=== PATIENT | male | born 1950 | race Caucasian/White ===

== ENCOUNTER 2018-03-16 08:27 | Emergency (ER) | payer MEDICARE, BC ==
[2018-03-16 08:53] VITALS: BP 132/77
--- NOTE | 2018-03-16 09:26 | ED ---
Throat Pain/Nasal Congestion - HPI Summary HPI Summary: 68 yr old male with 10 days of sinus pressure, post nasal drip, cough productive of yellow sputum. He denies fever, chills. He has had prior sinus infections before. His symptoms are moderate. - History of Current Complaint Chief Complaint: UCGeneralIllness Time Seen by Provider: 03/16/18 09:18 - Allergies/Home Medications Allergies/Adverse Reactions: Allergies Allergy/AdvReac Type Severity Reaction Status Date / Time No Known Allergies Allergy Verified 03/16/18 08:48 Home Medications: Home Medications Aspirin 81 mg CHEW TAB* 81 mg PO DAILY 03/16/18 [History Confirmed 03/16/18] Atorvastatin* [Lipitor 10 MG*] 10 mg PO DAILY 03/16/18 [History Confirmed ] Cholecalciferol (Vitamin D3) [Vitamin D3] 2,000 unit PO DAILY 03/16/18 [History Confirmed 03/16/18] Fluticasone NASAL SPRAY 50MCG* [Flonase NASAL SPRAY 50MCG*] 1 spray BOTH NARES DAILY 03/16/18 [History Confirmed 03/16/18] Insulin ASPART (NF) [Novolog (NF)] 100 ml CONT SUBCU DAILY 03/16/18 [History Confirmed 03/16/18] Losartan Potassium 25 mg PO DAILY 03/16/18 [History Confirmed 03/16/18] guaiFENesin [Mucinex] 600 mg PO DAILY 03/16/18 [History Confirmed 03/16/18] PMH/Surg Hx/FS Hx/Imm Hx Endocrine/Hematology History: Reports: Hx Diabetes - TYPE 1 - Surgical History Surgery Procedure, Year, and Place: VITRECTOMY LEFT EYE. BILATERAL FOOT SURGERY. TONSILLECTOMY. LEFT KNEE SURGERY Infectious Disease History: No Infectious Disease History: Denies: Traveled Outside the [place] in Last 30 Days - Social History Alcohol Use: Weekly Substance Use Type: Reports: None Smoking Status (MU): Never Smoked Tobacco Review of Systems Constitutional: Negative Positive: Sore Throat, Nasal Discharge, Other - sinus pressure Positive: Cough All Other Systems Reviewed And Are Negative: Yes Physical Exam Triage Information Reviewed: Yes Vital Signs On Initial Exam: Initial Vitals Temp Pulse Resp BP Pulse Ox 97.4 F 65 18 132/77 99 03/16/18 08:45 03/16/18 08:45 03/16/18 08:45 03/16/18 08:45 03/16/18 08:45 Vital Signs Reviewed: Yes Appearance: Positive: Well-Appearing, No Pain Distress Skin: Positive: Warm, Skin Color Reflects Adequate Perfusion Head/Face: Positive: Normal Head/Face Inspection Eyes: Positive: EOMI ENT: Positive: Nasal congestion, Nasal drainage, TMs normal, Sinus tenderness Neck: Positive: Nontender Respiratory/Lung Sounds: Positive: Clear to Auscultation, Breath Sounds Present Cardiovascular: Positive: RRR. Negative: Murmur Abdomen Description: Negative: Distended Musculoskeletal: Positive: Strength/ROM Intact Neurological: Positive: Sensory/Motor Intact, Alert, Oriented to Person Place, Time, CN Intact II-III Psychiatric: Positive: Normal - Gab Coma Scale Best Eye Response: 4 - Spontaneous Best Motor Response: 6 - Obeys Commands Best Verbal Response: 5 - Oriented Coma Scale Total: 15 Diagnostics - Vital Signs Vital Signs Temp Pulse Resp BP Pulse Ox 03/16/18 08:45 97.4 F 65 18 132/77 99 - Laboratory Lab Statement: Any lab studies that have been ordered have been reviewed, and results considered in the medical decision making process. EENT Course/Dx - Course Course Of Treatment: 68 yr old with sinusitis. Rx cefdinir - Diagnoses Provider Diagnoses: Sinusitis Discharge - Sign-Out/Discharge Documenting (check all that apply): Patient Departure All imaging exams completed and their final reports reviewed: No Studies - Discharge Plan Condition: Good Disposition: HOME Prescriptions: Cefdinir [Cefdinir 300 MG CAP] 300 mg PO BID #20 cap Patient Education Materials: Sinusitis (ED) Referrals: Marco Ramirez MD [Primary Care Provider] - 2 Days - Billing Disposition and Condition Condition: GOOD Disposition: Home
== END 2018-03-16 09:30 | disposition home or self-care (01) ==
LOC: EDSEX 08:27 → UCCORT 08:27
DX: J32.9 Chronic sinusitis, unspecified (principal); E10.9 Type 1 diabetes mellitus without complications; Z79.4 Long term (current) use of insulin
CPT/HCPCS: 99212; G0463